=== PATIENT | female | born 1980 | race Caucasian/White ===

== ENCOUNTER 2017-08-26 20:19 | Outpatient (CLI) | payer BC ==
[2017-08-26] MEDS: LACTATED RINGER'S 1,000 ML IV (21:39)
[2017-08-27] MEDS: LACTATED RINGER'S 1,000 ML IV (04:15)
== END 2017-08-27 05:45 | disposition home or self-care (01) ==
LOC: OBT 20:19 → L-D 20:20
DX: O47.1 False labor at or after 37 completed weeks of gestation (principal); O09.523 Supervision of elderly multigravida, third trimester; Z3A.37 37 weeks gestation of pregnancy
CPT/HCPCS: 36415; 76818; 96360; 96361

== ENCOUNTER 2017-09-08 02:10 | Inpatient (IN) | payer BC ==
[2017-09-08] MEDS ORDERED: IBUPROFEN 600 MG TAB PO (03:30)
[2017-09-08] MEDS ORDERED: CARBOPROST 250 MCG INJ IM ×2 (03:30→10:30)
[2017-09-08] MEDS ORDERED: METHYLERGONOVINE 0.2 MG INJ IM ×2 (03:30→10:30)
[2017-09-08] MEDS ORDERED: OXYTOCIN 30 UNITS/LR 500 ML IV ×4 (03:30→10:30)
[2017-09-08] MEDS ORDERED: BUTORPHANOL 2 MG INJ IV (03:30)
[2017-09-08] MEDS ORDERED: MISOPROSTOL 200 MCG TAB PR ×2 (03:30→10:30)
[2017-09-08] MEDS ORDERED: LIDOCAINE 1% (MPF) 30 ML INJ INJ (03:30)
[2017-09-08] MEDS: LACTATED RINGER'S 1,000 ML IV ×2 (03:45→05:13)
[2017-09-08 03:58] LABS: ADD MAN DIFF? NO
[2017-09-08 04:13] LABS: WHITE BLOOD COUNT 11.7 10^3/ul (4.8-10.8)
[2017-09-08 04:13] LABS: BASOPHIL # 0.1 10^3/ul (0.0-0.1); BASOPHILS % 0.4 % (0.0-2.0); EOSINOPHILS # 0.1 10^3/ul (0.0-0.5); EOSINOPHILS % 0.7 % (0.0-7.0); HEMATOCRIT 36.9 % (37.0-47.0); HEMOGLOBIN 12.8 g/dl (12.0-16.0); LYMPHOCYTES # 2.1 10^3/ul (0.8-2.9); LYMPHOCYTES % 17.6 % (15.0-51.0); MEAN CORPUSCULAR HEMOGLOBIN 31.4 pg (29.0-33.0); MEAN CORPUSCULAR HGB CONC 34.7 g/dl (32.0-37.0); MEAN CORPUSCULAR VOLUME 90.4 fl (82.0-101.0); MEAN PLATELET VOLUME 10.9 fl (7.4-10.4); MONOCYTE # 0.8 10^3/ul (0.3-0.9); MONOCYTES % 6.6 % (0.0-11.0); NEUTROPHIL # 8.5 10^3/ul (1.6-7.5); NEUTROPHILS % 72.7 % (39.0-77.0); PLATELET COUNT 185 10^3/UL (140-415); RED BLOOD COUNT 4.08 10^6/ul (4.20-5.40); RED CELL DISTRIBUTION WIDTH 13.2 % (11.5-14.5)
[2017-09-08 04:21] LABS: INR 0.82; PARTIAL THROMBOPLASTIN TIME 27.2 Sec (25.0-35.0); PROTIME 11.3 Sec (11.9-14.9); PT RATIO 0.9
[2017-09-08 04:58] LABS: HEPATITIS B SURFACE ANTIGEN NEGATIVE (NEGATIVE)
[2017-09-08] MEDS ORDERED: FENTAnyl 2MCG/ML-ROPIV 0.2% 100 ML (05:03)
[2017-09-08] MEDS ORDERED: LACTATED RINGER'S 1,000 ML IV (05:14)
[2017-09-08] MEDS: OXYTOCIN 30 UNITS/LR 500 ML IV ×3 (06:54→19:30)
[2017-09-08] MEDS ORDERED: OXYCODONE/ASPIRIN (4.88/325) TAB PO (10:30)
[2017-09-08] MEDS: IBUPROFEN 600 MG TAB PO ×2 (12:00→17:53)
[2017-09-08 14:50] LABS: RAPID PLASMA REAGIN NONREACTIVE (NR)
[2017-09-08] MEDS: BENZOCAINE 20% 56 ML SPRAY TOP (16:03)
[2017-09-08] MEDS: LANOLIN 7 GM TUBE TOP (16:03)
[2017-09-09] MEDS: LACTATED RINGER'S 1,000 ML IV* (02:05)
[2017-09-09] MEDS: IBUPROFEN 600 MG TAB PO ×5 (05:35→23:43)
[2017-09-09 09:13] LABS: ADD MAN DIFF? NO
[2017-09-09 09:23] LABS: BASOPHILS % 0.2 % (0.0-2.0); EOSINOPHILS # 0.1 10^3/ul (0.0-0.5); EOSINOPHILS % 0.4 % (0.0-7.0); HEMATOCRIT 35.8 % (37.0-47.0); HEMOGLOBIN 11.7 g/dl (12.0-16.0); LYMPHOCYTES # 2.2 10^3/ul (0.8-2.9); MEAN CORPUSCULAR HEMOGLOBIN 30.5 pg (29.0-33.0); MEAN CORPUSCULAR HGB CONC 32.7 g/dl (32.0-37.0); MEAN CORPUSCULAR VOLUME 93.2 fl (82.0-101.0); MEAN PLATELET VOLUME 10.3 fl (7.4-10.4); MONOCYTE # 0.7 10^3/ul (0.3-0.9); MONOCYTES % 5.3 % (0.0-11.0); NEUTROPHIL # 10.5 10^3/ul (1.6-7.5); NEUTROPHILS % 76.7 % (39.0-77.0); PLATELET COUNT 208 10^3/UL (140-415); RED BLOOD COUNT 3.84 10^6/ul (4.20-5.40); RED CELL DISTRIBUTION WIDTH 13.2 % (11.5-14.5)
[2017-09-09 09:23] LABS: WHITE BLOOD COUNT 13.7 10^3/ul (4.8-10.8)
[2017-09-09] MEDS: BENZOCAINE 20% 56 ML SPRAY TOP (11:20)
[2017-09-09] MEDS: LANOLIN 7 GM TUBE TOP (11:21)
[2017-09-10] MEDS: IBUPROFEN 600 MG TAB PO ×2 (05:42→12:05)
[2017-09-10] MEDS: DIPHTH/TET/ACEL PERTUSS (ADULT) 0.5 ML VIAL IM* (09:55)
[2017-09-10 09:58] LABS: ADD MAN DIFF? NO
[2017-09-10] MEDS: LANOLIN 7 GM TUBE TOP (10:01)
[2017-09-10] MEDS: BENZOCAINE 20% 56 ML SPRAY TOP (10:01)
[2017-09-10 10:02] LABS: BASOPHIL # 0.1 10^3/ul (0.0-0.1); BASOPHILS % 0.5 % (0.0-2.0); EOSINOPHILS # 0.1 10^3/ul (0.0-0.5); EOSINOPHILS % 1.3 % (0.0-7.0); HEMATOCRIT 35.3 % (37.0-47.0); HEMOGLOBIN 11.7 g/dl (12.0-16.0); LYMPHOCYTES # 2.4 10^3/ul (0.8-2.9); LYMPHOCYTES % 25.1 % (15.0-51.0); MEAN CORPUSCULAR HEMOGLOBIN 30.5 pg (29.0-33.0); MEAN CORPUSCULAR HGB CONC 33.1 g/dl (32.0-37.0); MEAN CORPUSCULAR VOLUME 92.2 fl (82.0-101.0); MEAN PLATELET VOLUME 10.2 fl (7.4-10.4); MONOCYTE # 0.7 10^3/ul (0.3-0.9); MONOCYTES % 7.4 % (0.0-11.0); NEUTROPHILS % 63.8 % (39.0-77.0); PLATELET COUNT 217 10^3/UL (140-415); RED BLOOD COUNT 3.83 10^6/ul (4.20-5.40); RED CELL DISTRIBUTION WIDTH 13.4 % (11.5-14.5)
[2017-09-10 10:02] LABS: WHITE BLOOD COUNT 9.4 10^3/ul (4.8-10.8)
== END 2017-09-10 17:47 | disposition home or self-care (01) | DRG 775 ==
LOC: OBT 02:10 → L-D 02:20 → OBT 03:00 → L-D 03:00 → PP1 12:34
PROVIDERS: Obstetrics & Gynecology
PROC: 10E0XZZ Delivery of Products of Conception, External Approach (ICD-10-PCS; principal; 2017-09-08)
PROC: 0KQM0ZZ Repair Perineum Muscle, Open Approach (ICD-10-PCS; 2017-09-08)
DX: O70.0 First degree perineal laceration during delivery (principal); Z37.0 Single live birth; Z3A.38 38 weeks gestation of pregnancy
CPT/HCPCS: 62319; 85025; 85610; 85730; 86592; 86850; 86900; 86901; 87340